=== PATIENT | male | born 1975 | race Caucasian/White ===

== ENCOUNTER 2018-09-02 01:00 | Inpatient (IN) | payer BC ==
[~2018-09-02] VITALS: Ht 180.3 cm; Wt 87.0 kg
[2018-09-02 01:04] VITALS: Ht 180.3 cm; Wt 87.0 kg
--- NOTE | 2018-09-02 01:22 | NUR ---
PT TO ED FOR EVAL OF ABD PAIN. PT STATES PAIN STARTED AT APPROX 1900 THIS EVENING. PT ARRIVED TO ED WITH HAD OVER EPIGASTIC AREA AND MOANING. STATES PAIN WAS RADIATING TO BACK. HE TOOK A HOT SHOWER IN ATTEMPT TO RELIEVE PAIN. PAIN TO BACK HAD RESOLVED. PAIN TO EPIGASTIC AREA CONTINUED. PT CAME TO ED DUE TO UNRESOLVED PAIN TO EPIGASTRIC. PT TO ROOM 3. CHANGED INTO GOWN AND PLACED ON CM. PT NOW STATES THAT PAIN TO BACK HAS RETURNED. PT AWAKE, ALERT, AND ORIENTED X 4. AT BEDSIDE.
--- NOTE | 2018-09-02 01:45 | NUR ---
DR. COSME AT BEDSIDE.
[2018-09-02 02:02] LABS: BASOPHIL % 0.1 % (0-2); PLATELET COUNT 220 x10^3mcL (130-400); RED CELL DISTRIBUTION WIDTH 13.6 % (11.5-14.5)
--- NOTE | 2018-09-02 02:09 | NUR ---
PT MEDICATED PER MD ORDERS. PT STATING "WHAT CAN I GET FOR PAIN, MY BACK IS KILLING ME" AND "WHAT IS HE EVEN ORDERING, HE TALKED SO FAST I DIDNT CATCH IT ALL". REEDUCATED PT AND FAMILY MEMBER ON TESTS AND PLAN OF CARE FOR PT. PT AND FAMILY VERBALIZED UNDERSTANDING. DR COSME MADE AWARE OF PTS C/O. NO FURTHER ORDERS AT THIS TIME.
[2018-09-02 02:18] LABS: CARBON DIOXIDE 26.6 mmol/L (21-32); CHLORIDE SERUM 102 mmol/L (98-107); GFR1 > 60 mL/min; GLUCOSE SERUM 128 mg/dL (74-106); SODIUM SERUM 140 mmol/L (136-145)
[2018-09-02 02:22] LABS: ALKALINE PHOSPHATASE 62 U/L (46-116); ALT/SGPT 42 U/L (16-63); AMYLASE 58 U/L (25-115); AST/SGOT 13 U/L (15-37); BILIRUBIN TOTAL 0.31 mg/dL (0.20-1.00); LIPASE 114 IU/L (73-393); TOTAL PROTEIN, SERUM 7.9 g/dL (6.4-8.2)
--- NOTE | 2018-09-02 03:01 | NUR ---
PT STILL APPEARS GAURDING ABDOMEN AND STATES "THIS MEDICATION ISNT HELPING AT ALL". DR COSME MADE AWARE OF PTS C/O. AWAITING FURTHER ORDERS AT THIS TIME.
--- NOTE | 2018-09-02 03:35 | NUR ---
PT MEDICATED PER MD ORDERS. PT TOLERATED WELL. WILL CONTINUE TO MONITOR.
--- NOTE | 2018-09-02 03:40 | NUR ---
PT STATES "IM STARTING TO FEEL A LITTLE BETTER AND TIRED. I DONT KNOW IF THATS JUST FROM THROWING UP OR FROM THE MEDICATION". CM AND [address] AT BEDSIDE[address] WILL CONTINUE TO MONITOR.
--- NOTE | 2018-09-02 03:41 | NUR ---
PT TO CT VIA [facility] AT THIS TIME.
--- NOTE | 2018-09-02 04:05 | NUR ---
PT OBSERVED SLEEPING IN POSITION OF COMFORT. PT IN NAD. BREATHING EVEN AND UNLABORED. CM AND [address] FAMILY AT BEDSIDE. WILL CONTINUE TO MONITOR.
--- NOTE | 2018-09-02 04:51 | NUR ---
ULTRASOUND AT BEDSIDE. PT AWAKE AND ALERT. PT IN NAD. BREATHING EVEN AND UNLABORED. PT STATES "I CAN FEEL THE PAIN STARTING TO CREEP BACK UP A LITTLE" . CM AND [address] AT BEDSIDE[address] WILL CONTINUE TO MONITOR.
--- NOTE | 2018-09-02 05:43 | NUR ---
PT MEDICATED PER MD ORDERS. IV FLUIDS RUNNING AT ORDERED RATE. LIGHTS OFF FOR PT COMFORT. WILL CONTINUE TO MONITOR.
--- NOTE | 2018-09-02 05:50 | NUR ---
REPORT GIVEN TO LITO LOPEZ
--- NOTE | 2018-09-02 06:03 | NUR ---
XRAY AT BEDSIDE.
[2018-09-02 06:14] LABS: MAGNESIUM 1.9 mg/dL (1.8-2.4); PHOSPHOROUS 3.8 mg/dL (2.5-4.9)
[2018-09-02 06:16] LABS: CHOLESTEROL/HDL RATIO 5.7
--- NOTE | 2018-09-02 06:35 | NUR ---
PT TRANSFERED TO TELE ROOM 234B AT THIS TIME IN NAD. PT A&0X4, SPEAKING FULL CLEAR SENTENCES. PT BREATHING EVEN AND UNLABORED. PT VERBALIZED UNDERSTANDING OF PLAN OF CARE. PT AMBULATED FROM ED GURNEY TO BED WITH STEADY GAIT. LITO LOPEZ AND ZIPPER LINING FOLDER AT BEDSIDE. PT ACCOMPANIED BY ME AND EMT KATHARINE
[2018-09-02 06:55] VITALS: BP 129/77
--- NOTE | 2018-09-02 06:56 | NUR ---
REC'D PT FROM ED VIA [facility] ACCOMPANIED BY NURSE. PT ADM FOR SEVERE ABD PAIN, CONSTANT PRESSURE, "SO BAD IT WENT TO MY BACK." PT RECEIVED PAIN MEDS IN ED AND DENIES PAIN AT THIS TIME. AAOX4, SPEECH CLEAR, FOLLOWS COMMANDS. TELE 17, NSR. DENIES CP, DIZZINESS, OR PALPITATIONS. DENIES RESP DISTRESS OR SOB. BREATHING EVEN/UNLABORED ON RA. ABD SOFT/ROUND. REPORTS TENDERNESS TO UMBILICAL AREA UPON PALPATION. DENIES N/V. VOIDING FREELY. AMBULATORY. SKIN INTACT. IV TO LAC PATENT AND INFUSING REMAINDER OF LEVAQUIN FROM ED. ORIENTED TO DEVICES AND SURROUNDINGS. CALL LIGHT WITHIN REACH, BED AT LOWEST POSITION. WILL ENDORSE TO DAY NURSE.
--- NOTE | 2018-09-02 07:21 | NUR ---
RECEIVED PT FROM SHIFT NURSE A/OX4. NO C/O OF ABD PAIN AT THIS TIME. IV INTACT AND PATENT. BED IN LOW POSITION. CALL LIGHT WITHIN REACH. WILL CONTINUE TO MONITOR.
[2018-09-02 07:29] VITALS: BP 129/77
--- NOTE | 2018-09-02 08:04 | NUR ---
PT C/O OF ABD PAIN 10/07. GAVE MORPHINE ORDERED. WILL CONTINUE TO MONITOR.
--- NOTE | 2018-09-02 08:23 | NUR ---
PT ASLEEP BUT AROUSABLE. WILL CONTINUE TO MONITOR.
--- NOTE | 2018-09-02 09:49 | NUR ---
PT C/O OF ABD PAIN 08/07. GAVE NORCO ORDERED. WILL CONTINUE TO MONITOR.
--- NOTE | 2018-09-02 10:00 | NUR ---
PT LYING IN BED TALKING ON THE PHONE. APPEARS IN NO ACUTE DISTRESS. IV INTACT AND PATENT. CALL LIGHT WITHIN REACH. WILL CONTINUE TO MONITOR.
[2018-09-02 10:37] LABS: microscopic required? NO
[2018-09-02 10:52] LABS: UA SPECIFIC GRAVITY 1.025 (1.005-1.035); urine erythrocyte NEGATIVE (NEGATIVE)
--- NOTE | 2018-09-02 10:56 | NUR ---
PT LEFT TO SURGERY
--- NOTE | 2018-09-02 12:52 | NUR ---
RECEIVED PT FROM OR NURSE VIA [facility]. PT DROWSY AND NO ACUTE DISTRESS NOTED. IV INTACT AND PATENT. TEMP 97.1 BP 138/82 HR 72 RR 17. RESP EVEN AND UNLABORED ON RA. 02 SAT 95% 3 ABD BANDAID WITH DRESSING AND SUTURES. DONALD DRAIN IN PLACE. BED IN LOW POSITION. CALL LIGHT WITHIN REACH. WILL CONTINUE TO MONITOR.
--- NOTE | 2018-09-02 15:03 | NUR ---
PT REMAINS ASLEEP BUT AROUSABLE. NO ACUTE DISTRESS. RESP EVEN AND UNLABORED ON RA. BED IN LOW POSITION. CALL LIGHT WITHIN REACH. WILL CONTINUE TO MONITOR.
--- NOTE | 2018-09-02 17:19 | NUR ---
PT C/O OF ABD PAIN 10/07. GAVE MORPHINE ORDERED. WILL CONTINUE TO MONITOR.
[2018-09-02 17:30] VITALS: BP 126/86
--- NOTE | 2018-09-02 17:35 | NUR ---
PT SITTING UP IN BED EATING DINNER. EXPRESSED RELIEF OF ABD PAIN. FAMILY MEMBER AT BEDSIDE. CALL LIGHT WITHIN REACH. WILL CONTINUE TO MONITOR.
--- NOTE | 2018-09-02 18:21 | NUR ---
PT LYING IN BED TALKING WITH FAMILY MEMBER. NO C/O OF ABD PAIN AT THIS TIME. 3 ABD DRESSINGS CDI. EMPTIED 20 ML FROM DONALD DRAIN. IV INTACT AND PATENT. BED IN LOW POSITION. CALL LIGHT WITHIN REACH. WILL BE ENDORSED.
--- NOTE | 2018-09-02 18:50 | NUR ---
PT C/O OF ABD PAIN 09/06. GAVE NORCO ORDERED. WILL CONTINUE TO MONITOR.
--- NOTE | 2018-09-02 19:51 | NUR ---
PT. AWAKE, ALERT, ORIENTED X4. SITTING UP IN BED W/ FAMILY AT BEDSIDE. ABLE TO FOLLOW COMMANDS, SPEECH CLEAR. DENIES HEADACHE OR DIZZINESS. BREATH SOUNDS CLEAR THROUGHOUT LUNG [place], RESP. EVEN, UNLABORED. NO SOB NOTED. PT. ON RA. PT. ENCOURAGED TO USE I.S WHILE AWAKE. ABD. SOFT AND FLAT, BOWEL SOUNDS HYPOACTIVE. ABD. PAIN 4-5/10, IMPROVED PER PT. PT. STATED THAT HE RECEIVED PAIN MEDICATION FROM DAY NURSE. IVF D5NS AT 100CC/HR. NO EDEMA TO EXTREMITIES. PEDAL PULSES STRONG TONI. PT. WEARING SCD'S TONI. CALL LIGHT WITHIN REACH.
[2018-09-02 20:33] VITALS: BP 117/80
--- NOTE | 2018-09-02 21:20 | NUR ---
PT. C/O ABD. PAIN, 10/07. PAIN DESCRIBED ACHING. PRN MORPHINE IVP AND PRN ZOFRAN IVP GIVEN TO PREVENT NAUSEA. NO REACTIONS NOTED. PT. VERBALIZED THAT HE STARTED TO FEEL RELIEF RIGHT AWAY. CALL LIGHT REMAINS WITHIN REACH. WILL CONTINUE TO MONITOR.
--- NOTE | 2018-09-03 00:30 | NUR ---
PT. W/ EYES CLOSED, SLEEPING. APPEARS COMFORTABLE. CALL LIGHT REMAINS WITHIN REACH. NSR ON MONITOR.
--- NOTE | 2018-09-03 05:31 | NUR ---
PT. DOZING AND WAS EASY TO WAKE. ABD. PAIN AT THIS TIME 8/10. PER PT. AFTER SITTING UP IN BED AND MOVING AROUND A BIT, THE PAIN INCREASED. BANDAIDS X3 REMAINS INTACT AND DRY, NO DRAINAGE NOTED. DONALD TUBE IN-SITU, TO BULB SUCTION. 30ML OF SEROSANGUINOUS FLUID NOTED AND EMPTIED. DENIES ANY NAUSEA AT THIS TIME. IVF INFUSING WELL, SITE REMAINS INTACT. PRN MORPHINE GIVEN , IVP, FOR PAIN MANAGEMENT. CALL LIGHT WITHIN REACH, WILL ENDORSE PT. CARE TO INCOMING NURSE.
[2018-09-03 06:03] LABS: BASOPHIL % 0.2 % (0-2); PLATELET COUNT 180 x10^3mcL (130-400); RED CELL DISTRIBUTION WIDTH 13.3 % (11.5-14.5)
[2018-09-03 06:07] VITALS: BP 127/85
[2018-09-03 06:20] LABS: CALCIUM 8.9 mg/dL (8.5-10.1); CARBON DIOXIDE 24.5 mmol/L (21-32); CHLORIDE SERUM 106 mmol/L (98-107); CREATININE SERUM 0.8 mg/dL (0.7-1.3); GFR1 > 60 mL/min; GLUCOSE SERUM 105 mg/dL (74-106); POTASSIUM SERUM 4.1 mmol/L (3.5-5.1); SODIUM SERUM 141 mmol/L (136-145)
--- NOTE | 2018-09-03 07:14 | NUR ---
RECEIVED PT FROM SHIFT NURSE SITTING UP IN BED A/OX4. DENIES ANY ABD PAIN AT THIS TIME. IV INTACT AND PATENT. CALL LIGHT WITHIN REACH. WILL CONTINUE TO MONITOR.
--- NOTE | 2018-09-03 08:51 | NUR ---
PT SITTING UP IN BED WATCHING TV. EXPRESSED RELIEF OF ABD PAIN. CALL LIGHT WITHIN REACH. WILL CONTINUE TO MONITIOR.
[2018-09-03 09:31] VITALS: BP 143/87
--- NOTE | 2018-09-03 10:36 | NUR ---
PT C/O OF ABD PAIN 09/06. GAVE NORCO ORDERED. WILL CONTINUE TO MONITOR.
--- NOTE | 2018-09-03 11:12 | NUR ---
PT EXPRESSED RELIEF OF ABD PAIN. WILL CONTINUE TO MONITOR.
--- NOTE | 2018-09-03 12:49 | NUR ---
PT C/O OF ABD PAIN 11/07. GAVE MORPHINE ORDERED. WILL CONTINUE TO MONITOR.
--- NOTE | 2018-09-03 12:50 | NUR ---
PT C/O OF NAUSEA. GAVE ZOFRAN ORDERED. WILL CONTINUE TO MONITOR.
--- NOTE | 2018-09-03 13:10 | NUR ---
PT SITTING UP IN BED TALKING WITH FAMILY MEMBERS. DENIES ABD PAIN AND NAUSEA. CALL LIGHT WITHIN REACH. WILL CONTINUE TO MONITOR.
--- NOTE | 2018-09-03 13:48 | NUR ---
PT WAS ABLE TO AMBULATE IN THE HALLWAY
--- NOTE | 2018-09-03 15:07 | NUR ---
EMPTIED 30ML OF SEROSANGUINEOUS DRAINAGE. WILL CONTINUE TO MONITOR.
[2018-09-03 16:37] VITALS: BP 139/88
--- NOTE | 2018-09-03 17:12 | NUR ---
PT C/O OF ABD PAIN 10/07. GAVE MORPHINE ORDERED. PT C/O OF NAUSEA. GAVE ZOFRAN ORDERED. WILL CONTINUE TO MONITOR.
--- NOTE | 2018-09-03 17:31 | NUR ---
PT SITTING UP IN BED WATCHING TV. DENIES ANY PAIN OR NAUSEA AT THIS TIME. CALL LIGHT WITHIN REACH. WILL CONTINUE TO MONITOR.
--- NOTE | 2018-09-03 18:28 | NUR ---
PT ASLEEP IN BED. NO ACUTE DISTRESS NOTED. RESP EVEN AND UNLABORED ON RA. IV INTACT AND PATENT. ABD BANDAGES CDI. DONALD DRAIN IN PLACE. BED IN LOW POSITION. CALL LIGHT WITHIN REACH. WILL BE ENDORSED.
--- NOTE | 2018-09-03 19:50 | NUR ---
SHIFT REASSESSMENT DONE.PATIENT ALERT AND ORIENTED.MAKE NEEDS KNOWN.BREATHING EASY.IS WHILE AWAKE.S/P LAP KEANU.09/02.PASSING GAS.HAS DONALD WITH SEROUSDRAINAGE.BANDAID X 3/CORAZON INTACT.VOIDING.IVF D5NS AT 100 CC/ HOUR.CALL LIGHT IN REACH.
[2018-09-03 20:16] VITALS: BP 123/85
--- NOTE | 2018-09-03 20:44 | NUR ---
PM MEDS GIVEN WITH NO INCIDENT.PAIN SOT GIVEN.IVF INFUSING WELL.IV SITE GOOD.
--- NOTE | 2018-09-04 04:22 | NUR ---
GIVEN YONI,SAYS HE HAS STIFF NECK LAYING IN BED.REMINDED TO WALK AROUND THIS AM.WANTING PAIN SHOT MAYBE BEFORE END OF SHIFT.CALL LIGHT IN REACH.
[2018-09-04 05:57] VITALS: BP 130/85
--- NOTE | 2018-09-04 06:49 | NUR ---
PAIN SHOT GIVEN,WANTED ICE PACK HEADACHE.
[2018-09-04 07:03] LABS: BASOPHIL % 0.2 % (0-2); PLATELET COUNT 182 x10^3mcL (130-400); RED CELL DISTRIBUTION WIDTH 13.2 % (11.5-14.5)
[2018-09-04 07:23] LABS: CALCIUM 8.7 mg/dL (8.5-10.1); CHLORIDE SERUM 102 mmol/L (98-107); CREATININE SERUM 0.8 mg/dL (0.7-1.3); GFR1 > 60 mL/min; GLUCOSE SERUM 111 mg/dL (74-106); POTASSIUM SERUM 3.8 mmol/L (3.5-5.1); SODIUM SERUM 137 mmol/L (136-145)
--- NOTE | 2018-09-04 07:30 | NUR ---
PT ENDORESE TO ME THIS MORNING. LAYING IN BED RESTING. AA/O X4 /BREATHING EVEN AND UNLABORED ON RA, NO ACUTE RESP DISTRESS OR SOB NOTED. MEDSURG. DENEIS ANY CP OR PRESSURE. BOWEL SOUNDS ACTIVE IN ALL FOUR QUADS, DONALD DRAIN NOTED TO UPPER ABD/ DRAINING SERO-SANG/ X3 ABD BANDAIDS INTACT/ NO NEW DRAINAGE NOTED. AMB/ PASSING GAS PER PT. IV TO THE LFA INTACT AND PATENT NS INFUSING AT 100ML/HR, NO REDNESS OR SWELLING NOTED. CALL LGHT IN REACH. BED IN LOW POSITION. WILL CONTINE TO MONITOR.
[2018-09-04 08:18] VITALS: BP 143/92
[2018-09-04 08:57] VITALS: BP 143/92
--- NOTE | 2018-09-04 11:41 | NUR ---
PT C/O OF [place]A 09/06, MEDICATED PER EMAR. ALSO REQUESTED ME TO TAKE OUT DONALD AFTER LUNCH. WILL RETURN AFTER LUNCH TO REMOVE DONALD DRAIN. WILL CONTINUE TO MONITOR.
[2018-09-04] MEDS ORDERED: TOR10 PO (12:10)
[2018-09-04 13:23] VITALS: BP 143/92
--- NOTE | 2018-09-04 13:33 | NUR ---
PT C/O ABD PAIN 08/07 MEDICATED PER EMAR. TOLERATED 100% OF LUNCH DIET/ DENIES ANY N/V.
--- NOTE | 2018-09-04 15:57 | NUR ---
DONALD DRAINED REMOVED, TOLERATED WELL. 50 ML/HR FOR SERO-SANGUINEOUS FLUID NOTED. REMOVED IV LFA/ TOLERATED WELL.
--- NOTE | 2018-09-04 16:40 | NUR ---
EXPLAINED DISCHARGE INSTRUCTIONS, NEW AND CONTINUED MEDS, AND FOLLOW UP APPT WITH DR. JOHN LEON ON 09/11 AT 3 PM, PT AGREED AND AND SIGNED ALL DOCUMENTS. DISCHARGE PICTURE TAKEN OF ABD. PT IS CLEAR ON ALL DISCHARGE INSTRUCTIONS. DENIES ANY ABD DISCOMFORT AT THIS TIME. WILL CALL NURSING STATION ONCE HE IS READY TO LEAVE.
--- NOTE | 2018-09-04 17:12 | NUR ---
AUDRA HAYNES WHEELED PT DOWN TO DISCHARGE LOBBY, BY HIS SIDE. DISCHARGE HOME. PT BREATHING EVEN AND UNLABORED ON RA/ NO ACUTE RESP DISTRESS OR SOB NOTED/ DENIES ANY ABD PAIN. PT DISCHARGE HOME.
== END 2018-09-04 17:10 | disposition home or self-care (01) | DRG 419 ==
LOC: ED 01:00 → MU 05:14 → DU 05:14 → MU 09-03 10:59
PROVIDERS: Emergency Medicine; Surgery; ADMIT Internal Medicine
PROC: 0FT44ZZ Resection of Gallbladder, Percutaneous Endoscopic Approach (ICD-10-PCS; principal; 2018-09-02 11:00)
DX: K81.0 Acute cholecystitis (principal)
CPT/HCPCS: 83880; 94150; C9113; G0378; J0330; J1170; J1885; J1956; J2270; J2405; J2704; J2710; J3010; J3490; J7030; J7042; J7120; Q0092